=== PATIENT | female | born 1995 | race Caucasian/White ===

== ENCOUNTER → 2018-05-07 21:35 | Observation (INO) ==
[2018-05-07 20:36] LABS: Bilirubin,Urine Negative (Negative); Blood,Urine Negative (Negative); Clarity,Urine Cloudy (Clear); Color,Urine Yellow (Yellow); Glucose,Urine (UA) Normal (Normal); Ketones,Urine Negative (Negative); Leukocyte Esterase,Urine Moderate (Negative); Nitrite,Urine Negative (Negative); PH,Urine 6.5 pH Units (5.0-8.0); Protein,Urine Negative (Neg-Trace); Specific Gravity,Urine 1.017 (1.010-1.025); Urobilinogen,Urine Normal (Normal)
[2018-05-07 20:39] LABS: Bacteria,Urine Moderate per hpf (None-Few); Hyaline Casts,Urine None Seen per lpf (None-Few); RBC,Urine 0-3 per hpf (0-3); Squamous Epithelial Cell,Urine Many per lpf (None-Few); WBC,Urine 15-30 per hpf (0-3)
--- NOTE | 2018-05-07 22:01 | Discharge Summary ---
Date of Encounter: 05/07/18 Time of Encounter: 22:01 - Discharge Diagnosis (1) 35 weeks gestation of Priority: Primary Status: Acute Comments: Admitted to observation for complaint of contractions. (2) NST (non-stress test) reactive Priority: Secondary Status: Acute Comments: FHR 135 bpm, moderate variability, +15x15 accels, no decels. - Discharge Medications Home Medications: One Tablet 1 tab PO DAILY 05/07/18 [History] Ranitidine HCl [Acid [employer] Worker] 150 mg PO DAILY 05/07/18 [History] Allergies/Adverse Reactions: Allergy/AdvReac Type Severity Reaction Status Date / Time No Known Allergies Allergy Verified 05/07/18 20:18 Data Procedures and tests throughout hospitalization: Laboratory Tests 05/07/18 05/07/18 20:22 20:22 Urine Color Yellow Urine Clarity Cloudy A Urine pH 6.5 Ur Specific [place] 1.017 Urine Protein Negative Urine Glucose (UA) Normal Urine Ketones Negative Urine Blood Negative Urine Nitrite Negative Urine Bilirubin Negative Urine Urobilinogen Normal Ur Leukocyte Esterase Moderate H Urine Microscopic RBC 0-3 Urine Microscopic WBC 15-30 H Ur Squamous Epith Cells Many H Urine Bacteria Moderate H Hyaline Casts None Seen Ur Culture Indicated? NO. A Ur Drug Screen Interp See Below Labs on day of discharge: Labs from last 24 hours 05/07/18 05/07/18 20:22 20:22 Urine Color Yellow Urine Clarity Cloudy A Urine pH 6.5 Ur Specific [place] 1.017 Urine Protein Negative Urine Glucose (UA) Normal Urine Ketones Negative Urine Blood Negative Urine Nitrite Negative Urine Bilirubin Negative Urine Urobilinogen Normal Ur Leukocyte Esterase Moderate H Urine Microscopic RBC 0-3 Urine Microscopic WBC 15-30 H Ur Squamous Epith Cells Many H Urine Bacteria Moderate H Hyaline Casts None Seen Ur Culture Indicated? NO. A Urine Opiates Screen Pending Ur Barbiturates Screen Pending Ur Phencyclidine Scrn Pending Ur Amphetamines Screen Pending U Benzodiazepines Scrn Pending Urine Cocaine Screen Pending U Marijuana (THC) Screen Pending Ur Drug Screen Interp See Below Date of admission: 05/07/18 20:05 Discharging clinician: Celeste Tilley Anticipated date of discharge: 05/07/18 - Patient Status Disposition: Home, Self-Care Condition: Good Functional capacity at discharge: independent ambulation Overall status at discharge: patient is progressing back to baseline - Discharge Instructions Additional Instructions: Keep all OB appointments LABOR AND DELIVERY DISCHARGE INSTRUCTIONS Signs and Symptoms to be Reported to your Doctor Immediately: * Sudden gush, continuous or intermittent lead of fluid from vagina (note the time of gush and color of fluid) * Onset of bright red vaginal bleeding with or without pain (if you had a vaginal exam during this visit you may notice some dark red spotting. This is normal.) * Lower abdominal cramping or backache that is premenstrual-like feeling. * More than 6 contractions in one hour. * Burning during urination, having to urinate more frequently or pain in your mid-back. * A change in the baby's activity. This could be an increase or decrease in activity. * Severe headache which does not go away with tylenol. * Sudden swelling in the face, hands, arms and/or legs. * Upper abdominal pain - sometimes associated with heartburn or nausea and is not relieved by Maalox, Mylanta or Tums. * Dizziness or blurred vision or visual disturbances (seeing stars/lights). * Kick Counts One hour after a meal, lay down on one side in a quiet place. Count the number of dereck the baby moves during an hour. If less than 6 movements, notify your physician. Diet: *Force fluids - 8-10 tall glasses of fluid per day. May include popsicles and jello. *Limit caffeine - this includes chocolate, coffee, tea, any soft drink containing such as all geovanny, Beau Yellow and Mountain Dew - Diet and Activity Activity: resume usual activities as tolerated Diet: regular diet Hospital Course [employer] Hospital course: Pt presented after intercourse today with complaint of contractions. Denies bleeding and fluid leakage, reports positive movement. SVE FT/thick/high without change in >1 hr. Rare contractions noted on toco. Patient is scheduled for her routine visit in 4 days. Discharged home with labor precautions. Time Attestation: Total time spent providing and/or coordinating discharge services: Time Spent: Less than 30 minutes Exam - Constitutional General appearance IM: cooperative, A&O X 3, pleasant, no acute distress, answers questions appropriately - Respiratory Respiratory exam: Present: CTAB - Cardiovascular Cardiovascular exam IM: Present: RRR, +S1, +S2 - GI/Abdominal GI/Abdominal exam IM: normal bowel sounds, soft - Rectal Rectal exam: deferred - External exam: normal external exam - Extremities Exam Extremities exam IM: Present: full ROM, normal capillary refill, normal inspection - Neurological Exam Neurological exam: alert, normal gait, oriented X3 - VTE Reasons for not Prescribing Prophylaxis: Treatment not Indicated - Low risk for VTE
[2018-05-07 23:01] LABS: Amphetamine Screen,Urine Negative ng/mL (Cutoff=1000); Barbiturate Screen,Urine Negative ng/mL (Cutoff=200); Benzodiazepines Screen,Urine Negative ng/mL (Cutoff=200); Cannabinoid Screen,Urine Negative ng/mL (Cutoff = 50); Cocaine Screen,Urine Negative ng/mL (Cutoff= 300); Opiate Screen,Urine Negative ng/mL (Cutoff=300); Phencyclidine Screen,Urine Negative ng/mL (Cutoff=25)
== END | disposition home or self-care (01) ==
LOC: 1NENULAB
PROVIDERS: ADMIT Registered Nurse; ATTEND Registered Nurse